=== PATIENT | male | born 1955 | race Caucasian/White ===

== ENCOUNTER → 2023-12-21 07:22 | Outpatient (REF) | payer MEDICARE, OTHER, SELFPAY | LOC: HWRAD 07:22 | PROVIDERS: ATTENDING PHYSICIAN Internal Medicine Hematology & Oncology; FAMILY PHYSICIAN Family Medicine | DX: C81.21 Mixed cellularity Hodgkin lymphoma, lymph nodes of head, face, and neck (principal) | CPT/HCPCS: 71260; 74177; Q9967 ==

== ENCOUNTER → 2025-08-25 17:17 | Outpatient (REF) | payer MEDICARE, OTHER, SELFPAY ==
[2025-08-25 18:02] LABS: Hematocrit 37.3 % (39.0-52.0); Hemoglobin 12.5 g/dL (13.0-18.0); Mean Corp Hgb Conc. 33.5 g/dL (33.0-37.0); Mean Corpuscular Volume 80.7 fL (80.0-94.0); Nucleated Red Blood Cells % 0 % (-); Platelet Count 354 10^3/uL (130-400); Red Cell Dist. Width 13.7 % (11.5-14.5)
[2025-08-25 18:10] LABS: ALT (SGPT) 34 U/L (0-50); AST (SGOT) 34 U/L (17-59); Albumin 4.2 g/dl (3.5-5.0); Alkaline Phosphatase 97 U/L (38-126); Blood Urea Nitrogen 16 mg/dl (9-20); Calcium 9.5 mg/dl (8.4-10.2); Carbon Dioxide 24 mmol/L (22-30); Chloride 96 mmol/L (98-107); Glucose 101 mg/dl (70-99); Potassium 4.3 mmol/L (3.5-5.1); Sodium 129 mmol/L (135-145); Total Protein 7.1 g/dl (6.3-8.2); eGFR > 60.00
== END ==
LOC: RAD 17:17
PROVIDERS: ATTENDING PHYSICIAN Family Medicine
DX: K35.30 Acute appendicitis with localized peritonitis, without perforation or gangrene (principal)
CPT/HCPCS: 36415; 74177; 80053; 85025; Q9967

== ENCOUNTER → 2025-08-27 07:03 | Outpatient (REF) | payer MEDICARE, OTHER, SELFPAY ==
[2025-08-27] VITALS (7 sets, daily range): BP systolic 90–134; BP diastolic 63–87
[2025-08-27 07:46] LABS: PT 15.7 Sec (11.4-14.6)
[2025-08-27 07:52] LABS: INR 1.27
== END ==
LOC: RADI 07:03
PROVIDERS: ATTENDING PHYSICIAN Family Medicine; REFERRING PHYSICIAN Physician Assistant
DX: C85.13 Unspecified B-cell lymphoma, intra-abdominal lymph nodes (principal); D68.8 Other specified coagulation defects
CPT/HCPCS: 36415; 49180; 77012; 85610; 88305; 88333; 88341; 88342; 99152; 99153

== ENCOUNTER 2025-09-01 17:41 | Observation (INO) | payer MEDICARE, OTHER, SELFPAY ==
[2025-09-01] VITALS (12 sets, daily range): BP systolic 87–149; BP diastolic 45–107; BMI 38.7
[2025-09-01 14:22] LABS: Hematocrit 36.6 % (39.0-52.0); Hemoglobin 12.1 g/dL (13.0-18.0); Mean Corp Hgb Conc. 33.1 g/dL (33.0-37.0); Mean Corpuscular Volume 81.2 fL (80.0-94.0); Nucleated Red Blood Cells % 0 % (-); Platelet Count 398 10^3/uL (130-400); Red Cell Dist. Width 13.8 % (11.5-14.5)
--- NOTE | 2025-09-01 14:33 | ED.GENMED ---
History of Present Illness
General
Chief Complaint: Abdominal Pain
Time Seen by Provider: 09/01/25 13:59
History of Present Illness
History of Present Illness:
69-year-old male with prior history of lymphoma presenting to the emergency department for worsening abdominal pain and failure to thrive. Patient reports that he had lymphoma in 2018, and about 3 to 4 weeks ago, started to have generalized
abdominal pain. He had a CT completed shortly after that time which showed multiple masses in the abdomen and pelvis, status post biopsy. They got the biopsy results which show lymphoma. He has not yet establish oncologic care, however had
previously [facility] following [facility] for prior [facility]. Patient arrives today, with daughter, who notes that he has not been eating or drinking for the past week due to pain. Denies any fever. Denies chest pain or difficulty breathing.
Denies additional acute medical complaints
Past History
Past History
ED Past Medical History: HTN and Hypercholesterolemia
ED Past Surgical History: None
Social History
Tobacco: Other (unknown)
Alcohol: Other (unknown)
Family History
Family History: Unable to obtain
Phy Exam
Physical Exam
Physical Exam:
General: Well-appearing, no clinical signs of dehydration, nontoxic and in no acute distress
HEENT: protecting airway
Neck: appears supple
CV: Normal heart rate, regular rhythm
Resp: No accessory muscle use, no increased work of breathing, lungs clear to auscultation bilaterally
Abd: Soft and non-distended, generalized tenderness to lower abdomen without rebound or guarding
Extremities: No deformities, no swelling
Neuro: alert, no focal neurologic deficit
: deferred
Rectal: deferred
Psych: Normal affect
Skin: Intact
Course
Orders/Labs/Results
Orders:
Orders
09/01/25 14:07
CMP [Comprehensive Metabolic Panel] Urgent
Complete Blood Count/With Diff Urgent
LDH Urgent
Comment: ADD ON
Uric Acid Urgent
Comment: ADD ON
09/01/25 14:26
CT Abd/pelvis W Iv Cont Urgent
Comment:
Reason For Exam: LLQ pain, new diagnosis of lymphoma
0.9% Sodium Chloride 1000 ml [Nss] 1,000 ml IV BOLUS
09/01/25 15:58
Add On- LAB Urgent
Tests Added?: uric acid and LDH
Abnormal Lab Results
09/01/25
14:07
WBC 16.4 H 10^3/uL
(4.8-10.8)
RBC 4.51 L 10^6/uL
(4.70-6.10)
Hgb 12.1 L g/dL
(13.0-18.0)
Hct 36.6 L %
(39.0-52.0)
MCH 26.8 L pg
(27.0-31.0)
Abs Immat Gran (auto) 0.1 H 10^3/uL
(0-0.05)
Absolute Neuts (auto) 13.4 H 10^3/uL
(1.4-6.5)
Absolute Monos (auto) 1.0 H 10^3/uL
(0.1-0.6)
Neutrophils % 81.8 H %
(42.2-75.2)
Lymphocytes % 10.5 L %
(20.5-51.1)
Sodium 134 L mmol/L
(135-145)
Glucose 106 H mg/dl
(70-99)
09/01/25 14:07
09/01/25 14:07
Vital Signs
Initial and Last Documented VS:
Initial Vital Signs
Temp Pulse Resp BP Pulse Ox
98.2 F 117 20 87/64 99
09/01/25 13:37 09/01/25 13:37 09/01/25 13:37 09/01/25 13:37 09/01/25 13:37
Last Documented Vital Signs
Temp Pulse Resp BP Pulse Ox
98.2 F 96 16 129/97 96
09/01/25 13:37 09/01/25 14:06 09/01/25 14:06 09/01/25 14:05 09/01/25 14:35
MDM/Problems Addressed
MDM/Problems Addressed:
69-year-old male with new diagnosis of lymphoma presenting to the emergency department for concern of failure to thrive and persistent abdominal pain. Vital signs on arrival significant for hypotension and tachycardia.
On exam patient is resting comfortably, no acute distress. Mild dryness to mucous membranes. Primary concern for dehydration with daughter noting that he has not been eating or drinking in the past week due to his new oncologic process and
abdominal pain. Vital signs on presentation consistent with volume depletion, hypotension, tachycardia, which improved once in examination room. Will start patient on IV fluids and obtain laboratory analysis to evaluate for dehydration. Will also
repeat CT imaging to ensure no interval change and discussed with oncology for likely plan for admission given failure to thrive
16:15 -patient's labs appear to be unchanged from prior. CT without significant acute change. Again plan for admission for failure to thrive, case discussed with oncology who will consult
*Pulse Oximetry
SaO2: 96
Oxygen Mode of Delivery: Room air
Patient hypoxic: no
*Critical Care Note
Total Time (30-74mins, 75-104mins- exclusive of procedures): Not Applicable
ED Attending Note
-
Portions of this chart may have been created with voice recognition software.� Occasional wrong word or��sound alike� substitutions may have occurred due to the inherent limitations of voice recognition software.
Discharge Plan
Departure
Patient Disposition: Admit
Date of Disposition: 09/01/25
Time of Disposition: 16:08
Presentation/result/management discussed w/ accepting MD/DO: Hospitalist
Patient with high blood pressure during this ER visit?: No
Condition: Fair
Discharge Problem:
Adult failure to thrive, Abdominal pain
Prescriptions:
No Action
metformin 500 MG tablet
500 mg PO BID
Patient Comments:
pt. states that he cut his dose in 1/2 & takes 500 mg. bid
lisinopril [Zestril] 5 MG tablet
10 mg PO DAILY
prochlorperazine maleate 10 mg Capsule, Extended Release
10 mg PO PRN PRN (Reason: nausea)
simvastatin [Zocor] 40 mg Tablet
40 mg PO HS
ondansetron 8 mg Tablet,Disintegrating
8 mg PO Q12H PRN (Reason: nausea)
Lactobacillus acidophilus 20 billion cell Capsule
100 mmu cells PO DAILY
Referrals:
Monico Muniz MD [Family Provider, Family Practice]
Interventions
Interventions:
*General Assessment Last Done: 09/01/25 13:37
*Neglect/Abuse Screening Last Done: 09/01/25 13:37
*ED COVID-19 Vaccine History Last Done: 09/01/25 13:53
*ED Influenza Vaccine History Last Done: 09/01/25 13:53
[facility] Fall Risk Assessment Tool Last Done: 09/01/25 13:53
RF-Tnxpro-Uagczbwkru Assessment Last Done: 09/01/25 14:11
Discharge Date and Time
Print Language: FRENCH
[2025-09-01 14:36] LABS: ALT (SGPT) 33 U/L (0-50); AST (SGOT) 39 U/L (17-59); Albumin 3.9 g/dl (3.5-5.0); Alkaline Phosphatase 99 U/L (38-126); Blood Urea Nitrogen 19 mg/dl (9-20); Calcium 9.3 mg/dl (8.4-10.2); Carbon Dioxide 24 mmol/L (22-30); Chloride 102 mmol/L (98-107); Estimated Creatinine Clearance 87 ml/min; Glucose 106 mg/dl (70-99); Potassium 4.1 mmol/L (3.5-5.1); Sodium 134 mmol/L (135-145); Total Protein 6.9 g/dl (6.3-8.2); eGFR > 60.00
[2025-09-01] MEDS: NSS 1000 IV (14:42)
[2025-09-01 16:31] LABS: LDH 465 U/L (120-246); Uric Acid 4.8 mg/dl (3.5-8.5)
--- NOTE | 2025-09-01 16:37 | HPS.HSE ---
Addendum entered and electronically signed by Annita Hendrickson MD 09/01/25 17:36:
This is an addendum to H&P written by Richelle Dodson on 09/01/2025. �Patient seen and examined independently with PA.
69-year-old male past medical history of Hodgkin's lymphoma in 2018 status post chemotherapy and radiation previously follows with Dr. Huffman, hypertension, hyperlipidemia, diabetes, obesity, obstructive sleep apnea, �presenting with abdominal pain
and decreased appetite since . �He had a CAT scan on 08/25 showing multiple abdominal masses. �He had a biopsy on 08/27. �He was called by primary who told that the biopsy is positive for lymphoma.
Vital signs shows 87/64.
Labs show leukocytosis 16.
CT abdomen pelvis shows numerous mesenteric and retroperitoneal soft tissue nodules which are stable in appearance from prior and are known biopsy-proven lymphoma.
Patient was given IV fluids with improvement in blood pressure.
Oncology consulted.
Original Note:
Family Physician
-
Family Physician: Monico Muniz
Chief Complaint
-
Abdominal Pain and Poor Appetite
History of Present Illness
Patient is a 69 y/o male past medical history of diabetes mellitus, hypertension, hyperlipidemia, obesity and Hodgkin lymphoma s/p chemo and radiation who presents with abdominal pain and poor. Patient reports since he has been having
right sided abdominal pain. He had a CT scan which revealed multiple abdominal masses. He underwent biopsy last week and received notification today from his primary that the biopsy was positive for recurrent lymphoma. Patient reports he has very
limited appetite, stating food has no flavor. He reports some new abdominal pain on the left. He denies nausea, vomiting or changes in bowel habits.
Medical History
Past Medical History
Past Medical History: Reports Other
Additional Past Medical History:
Diabetes Mellitus, Type II
Essential Hypertension
Hyperlipidemia
Obstructive Sleep Apnea
Class II Obesity
Hodgkin's Lymphoma s/p chemotherapy and radiation
Past Surgical History: Reports Other
Additional Past Surgical History:
Cataracts
Left sternoclavicular joint abscess drainage/debridement
Pectoralis Flap Reconstruction
Social History
Tobacco: Non-smoker
Alcohol: Occasional
Living: With Family
Family History
Family History: Not pertinent
Allergies / Home Medications
Allergies reflects when Allergies were last updated in [facility].
Home Medications with original date entered in [facility]
Allergy/Medication List:
Allergies
Allergy/AdvReac Type Severity Reaction Status Date / Time
No Known Drug Allergies Allergy Unknown Verified 09/01/25 13:35
Home Medications
metformin 500 mg tablet 500 mg PO BID 10/22/17
simvastatin 40 mg tablet (Zocor) 40 mg PO DAILY 08/26/25
glipizide 5 mg tablet, extended release 24 hr 5 mg PO DAILY@1800 09/01/25
lisinopril 5 mg tablet 5 mg PO DAILY 09/01/25
pioglitazone 30 mg tablet 30 mg PO DAILY 09/01/25
Review of Systems
-
A 12 point ROS was completed and negative except as noted: Yes
Constitutional: Denies Fever or Chills
Respiratory: Denies Cough or Trouble Breathing
Cardiac: Denies Chest Pain or Palpitations
Abdomen/GI: Reports See HPI
Physical Exam
Vital Signs
Vital Signs
Temp Pulse Resp BP Pulse Ox
98.2 F 96 16 129/97 96
09/01/25 13:37 09/01/25 14:06 09/01/25 14:06 09/01/25 14:05 09/01/25 14:35
Physical Exam
General: Comfortable, Conversant and Obese
HEENT: Anicteric and Moist mucous membranes
Respiratory: Clear and Non Labored Respirations
Cardiac: S1/S2 and Regular Rhythm
GI: Soft, Tender (Right lower quadrant without rebound or guarding) and Other (bowel sounds are more prominent in bilateral upper quadrants)
Rectal: Deferred by Provider
Musculoskeletal: No Clubbing and No Cyanosis
Skin: Warm and Dry
Neuro: Awake, Alert, Oriented and Nonfocal/grossly intact
Psych: Calm
Laboratory Results
-
09/01/25 14:07
09/01/25 14:07
Laboratory Results
Total Bilirubin 0.7 mg/dl (0.2-1.3) 09/01/25 14:07
AST 39 U/L (17-59) 09/01/25 14:07
ALT 33 U/L (0-50) 09/01/25 14:07
Alkaline Phosphatase 99 U/L (38-126) 09/01/25 14:07
Data Reviewed
-
Lab Data: Labs Reviewed by me
Impression/Plan
-
Multiple Abdominal Masses / Newly Diagnosed Recurrent Lymphoma
-Consult Oncology
Diabetes Mellitus, Type II
-Hold oral meds due to poor oral intake
-Monitor sugars and continue coverage insulin
Essential Hypertension
-Patient reports he has not taken his lisinopril for a few weeks
-Monitor blood pressure off meds
Hyperlipidemia
-Continue statin
Obstructive Sleep Apnea
-Patient intolerant to CPAP
Class II Obesity
-Affects all aspects of care
DVT proph: Lovenox
Code Status: Full Code
[2025-09-01] MEDS: LOVENOX 40 MG SC (22:14)
[2025-09-02] VITALS (10 sets, daily range): BP systolic 111–143; BP diastolic 40–88
[2025-09-02 00:26] LABS: Glucose - Point of Care 112 mg/dl (70-99)
[2025-09-02 06:11] LABS: Blood Urea Nitrogen 17 mg/dl (9-20); Calcium 8.6 mg/dl (8.4-10.2); Carbon Dioxide 23 mmol/L (22-30); Chloride 104 mmol/L (98-107); Estimated Creatinine Clearance 97 ml/min; Glucose 87 mg/dl (70-99); Potassium 4.7 mmol/L (3.5-5.1); Sodium 132 mmol/L (135-145); eGFR > 60.00
[2025-09-02 06:21] LABS: Hematocrit 34.7 % (39.0-52.0); Hemoglobin 11.0 g/dL (13.0-18.0); Mean Corp Hgb Conc. 31.7 g/dL (33.0-37.0); Mean Corpuscular Volume 86.1 fL (80.0-94.0); Platelet Count 357 10^3/uL (130-400); Red Cell Dist. Width 13.9 % (11.5-14.5)
--- NOTE | 2025-09-02 07:15 | W.PN.HOSP.TC ---
Addendum entered and electronically signed by Herlinda Geiger MD 09/02/25 18:39:
I saw and evaluated the patient independently. I reviewed and discussed the resident�s note and agree with findings and plan as documented by Dr. Khoury.
GENERAL: well developed, well nourished, male in no apparent distress
HEENT: NC/AT--Hard of hearing
HEART: regular rate and rhythm, +S1, +S2
LUNGS : clear to auscultation bilaterally
ABDOM: soft, nontender, nondistended, + bowel sounds
EXT: no cyanosis, clubbing, or edema
Multiple Abdominal Masses/Newly Diagnosed Recurrent Lymphoma/history of Hodgkin's Lymphoma in 2018--known to Dr. Huffman--apprec onc--path not back--Ok to d/c pt with outpt onc follow up
Diabetes Mellitus, Type II-Agreed to hold oral meds(pioglitazone, metformin, glipizide) due to poor oral intake-Monitor sugars and continue coverage insulin
Essential Hypertension-Patient reports he has not taken his lisinopril for a few weeks and on initial presentation his blood pressure was in 80s- Blood pressure improved after IV fluid
Hyperlipidemia-Continue statin
Obstructive Sleep Apnea-Patient intolerant to CPAP
Class II Obesity-Affects all aspects of care
DVT proph-- Lovenox
Code Status-- Full Code
Original Note:
Today's Communication/Plan
-
d/c
follow-up outpatient with Dr. Huffman to review the treatment options once the path report is back
Assessment / Plan
Assessment / Plan
69-year-old male past medical history of Hodgkin's lymphoma in 2018 status post chemotherapy and radiation previously follows with Dr. Huffman, hypertension, hyperlipidemia, diabetes, obesity, obstructive sleep apnea, presenting with abdominal pain
and decreased appetite, outpatient CT scan on 08/25 showing multiple abdominal masses. �He had a biopsy on 08/27. �He was called by primary who told that the biopsy is positive for lymphoma.
#Multiple Abdominal Masses / Newly Diagnosed Recurrent Lymphoma/history of particular pulm in 2018
- Oncology team has been consulted
- official path report is pending
- Patient was discussed with on service oncology resident, Dr. Cabrera ; no official pathology report available at [facility]; will take some additional days and there is no role of inpatient chemotherapy at this point.
- Patient will follow-up outpatient with Dr. Huffman to review the treatment options
CT 09/01/2025:
There are numerous mesenteric and retroperitoneal soft tissue nodules which are stable in appearance from prior and are known biopsy-proven lymphoma.
Redemonstration of the mass along the terminal ileum without signs suggestive of small bowel obstruction.
Cholelithiasis without CT findings suggestive of acute cholecystitis.
Stable bilateral adrenal nodules which are likely benign.
#Diabetes Mellitus, Type II
-Agreed to hold oral meds(pioglitazone, metformin, glipizide) due to poor oral intake
-Monitor sugars and continue coverage insulin
#Essential Hypertension
-Patient reports he has not taken his lisinopril for a few weeks and on initial presentation his blood pressure was in 80s
- Blood pressure improved after IV fluid
#Hyperlipidemia
-Continue statin
#Obstructive Sleep Apnea
-Patient intolerant to CPAP
#Class II Obesity
-Affects all aspects of care
DVT proph: Lovenox
Code Status: Full Code
Anticipated Discharge: Today
Subjective/Interval History
-
Date of Service: September 02, 2025
AFVSS. Patient offers no complaints. States that his abdominal pain is very minimal.
Objective Data
-
Labs:
Laboratory Results
09/02/25
05:34
WBC 11.0 H
Hgb 11.0 L
Hct 34.7 L
Plt Count 357
Sodium 132 L
Potassium 4.7
Chloride 104
Carbon Dioxide 23
BUN 17
Creatinine 0.9
Glucose 87
Calcium 8.6
Vital Signs:
Vital Signs
Temp Pulse Resp BP Pulse Ox
98.2 F 85 22 142/76 96
09/01/25 13:37 09/01/25 23:15 09/01/25 23:15 09/02/25 06:00 09/02/25 06:00
Review of Systems
-
History Source: Patient
All other systems: Reviewed and negative
Physical Exam
-
General: Well Developed, Well Nourished and Obese
HEENT: Normocephalic, Atraumatic and Hearing Impaired
Respiratory: Clear to Auscultation and Non Labored Respirations
Cardiac: Regular Rhythm and S1/S2
GI: Soft, Nontender and Nondistended
Skin: Warm and Dry
Neuro: Awake, Alert and Oriented
Psych: Calm
Data Reviewed
-
CT Scan: Report Reviewed by me, Discussed with Physician and Discussed with Patient
Labs: Labs Reviewed by me, Discussed with Physician and Discussed with Patient
[2025-09-02] MEDS: LIPITOR 20 MG PO ×2 (08:50→08:54)
[2025-09-02 09:05] LABS: Glycohemoglobin (HgbA1c) 6.6 % (4.0-5.9)
[2025-09-02 09:38] LABS: Glucose - Point of Care 106 mg/dl (70-99)
--- NOTE | 2025-09-02 09:39 | CON.ONC ---
Consultation
-
Date Consultation Requested: 09/01/25
Date Consultation Performed: 09/02/25
Requesting Provider: Richelle Milian PA-C
Performing Provider: Luigi Vasquez MD
Reason for Consultation: History of lymphoma
Impression
Impression
Patient with history of Hodgkin's lymphoma in 2018 s/p chemo and RT now with possible relapsed disease, path pending
Plan
Plan
#History of Hodgkin's lymphoma in 2018 s/p chemotherapy and RT
#Abdominal pain
#Low appetite
#Masses seen on CT A/P on 08/25 and 09/01 s/p biopsy on 08/27
Patient previously followed with Dr. Huffman. He had been in remission and last seen in the [facility] in 2023. Given new findings on scans and pending path report, he will likely need to reestablish care with Dr. Huffman outpatient. We do not
see a role for inpatient hospitalization from an oncology perspective at this time.
- If no active medical concerns at this time, we recommend discharging patient with outpatient follow-up with Dr. Huffman.
Patient History
History of Present Illness
69-year-old male with history of lymphoma in 2018 (followed with Dr. Huffman) who presented to the ED for 3-4 weeks of low appetite secondary to generalized abdominal pain. His PCP ordered a CT A/P on 08/25, which showed a mass in the right lateral
paracolic gutter and a mass surrounding the distal ileum concerning for metastatic disease. The patient then had an outpatient CT-guided biopsy on 08/27 for which final path is pending, however patient was told by his PCP that path was positive for
lymphoma and sent to the ED for further management. He has yet reestablish oncological care. Today, he denies SOB, fevers, nausea, night sweats, vomiting, headaches, chest pain, GI/ symptoms. He endorses an unintentional 25 pound weight loss in
the last year.
Past-Medical/Surgical History
Past medical history:
Hypertension, essential
Hypercholesterolemia
Hodgkin's lymphoma s/p chemotherapy and radiation in 2018
SAUD
Type 2 diabetes
Past surgical history:
Cataracts
Left sternoclavicular joint abscess drainage/debridement
Pectoralis flap reconstruction
Patient Medication
�Medication �Instructions �Recorded �Confirmed �Last Taken �Type
metformin 500 mg tablet 500 mg PO BID 10/22/17 09/02/25 08/26/25 History
simvastatin 40 mg tablet (Zocor) 40 mg PO DAILY 08/26/25 09/02/25 08/26/25 History
glipizide 5 mg tablet, extended 5 mg PO DAILY@1800 09/01/25 09/02/25 Unknown History
release 24 hr
lisinopril 5 mg tablet 5 mg PO DAILY 09/01/25 09/02/25 Unknown History
pioglitazone 30 mg tablet 30 mg PO DAILY 09/01/25 09/02/25 Unknown History
Active Medications
Generic Name Dose Route Start Last Admin
Trade Name Freq PRN Reason Stop Dose Admin
Acetaminophen 650 mg 09/01/25 20:52
Acetaminophen 325 Mg Tablet PO 09/29/25 20:51
Q4HPRN PRN
mild pain/ fever>100.5F
Atorvastatin Calcium 20 mg 09/02/25 08:00 09/02/25 08:54
Atorvastatin (Lipitor) 20 Mg Tablet PO 09/30/25 07:59 20 mg
DAILY MERCEDES Administration
Dextrose 12.5 grams 09/01/25 20:52
Dextrose 50% (0.5 Grams/Ml) 50 Ml Syringe IV 09/29/25 20:51
[id number] PRN
hypoglycemia
Protocol
Enoxaparin Sodium 40 mg 09/01/25 20:52 09/01/25 22:14
Enoxaparin Sodium 40 Mg/0.4 Ml Syringe SC 09/29/25 20:51 40 mg
QPM MERCEDES Administration
Glucagon 1 mg 09/01/25 20:52
Glucagon 1 Mg Vial IM 09/29/25 20:51
PRN PRN
hypoglycemia
Protocol
Insulin Aspart 0 units 09/02/25 07:30
Insulin Aspart Low Resistance 300 Units/3 Ml Pen.Injctr SC 09/30/25 07:29
AC MERCEDES
Protocol
Sodium Chloride 0 flush 09/01/25 21:00
Sodium Chloride 0.9% (Flush) Syringe IV 09/29/25 20:59
PER PROTOCOL MERCEDES
Review of Systems
-
History Source: Patient
All Other Systems: Reviewed and Negative
Constitutional: Reports Weight Loss and No Appetite
GI: Reports Abdominal Pain
Physical Exam
-
General: Well Nourished, No Apparent Distress, Comfortable and Conversant
HEENT: Moist Mucous Membranes
Cardiology: Normal Sinus Rhythm
Pulmonary: Clear
GI: Soft and Normal Bowel Sounds
Musculoskeletal: No Edema
Skin: Warm and Dry
Psych: Calm and Intact Judgement/Insight
Labs
Lab Results
WBC 11.0 10^3/uL (4.8-10.8) H 09/02/25 05:34
RBC 4.03 10^6/uL (4.70-6.10) L 09/02/25 05:34
Hgb 11.0 g/dL (13.0-18.0) L 09/02/25 05:34
Hct 34.7 % (39.0-52.0) L 09/02/25 05:34
MCV 86.1 fL (80.0-94.0) 09/02/25 05:34
MCH 27.3 pg (27.0-31.0) 09/02/25 05:34
MCHC 31.7 g/dL (33.0-37.0) L 09/02/25 05:34
RDW 13.9 % (11.5-14.5) 09/02/25 05:34
Plt Count 357 10^3/uL (130-400) 09/02/25 05:34
MPV 9.4 fL (7.4-10.4) 09/02/25 05:34
Abs Immat Gran (auto) 0.1 10^3/uL (0-0.05) H 09/01/25 14:07
Absolute Neuts (auto) 13.4 10^3/uL (1.4-6.5) H 09/01/25 14:07
Absolute Lymphs (auto) 1.7 10^3/uL (1.2-3.4) 09/01/25 14:07
Absolute Monos (auto) 1.0 10^3/uL (0.1-0.6) H 09/01/25 14:07
Absolute Eos (auto) 0.1 10^3/uL (0-0.7) 09/01/25 14:07
Absolute Basos (auto) 0.1 10^3/uL (0-0.2) 09/01/25 14:07
Immature Gran % 0.5 % (0-0.5) 09/01/25 14:07
Neutrophils % 81.8 % (42.2-75.2) H 09/01/25 14:07
Lymphocytes % 10.5 % (20.5-51.1) L 09/01/25 14:07
Monocytes % 6.3 % (1.7-9.3) 09/01/25 14:07
Eosinophils % 0.5 % (0-6) 09/01/25 14:07
Basophils % 0.4 % (0-2) 09/01/25 14:07
Creatinine 0.9 mg/dL (0.7-1.3) 09/02/25 05:34
Vital Signs
Vital Signs
Temp Pulse Resp BP Pulse Ox
97.9 F 88 18 140/67 100
09/02/25 07:35 09/02/25 07:35 09/02/25 07:35 09/02/25 07:35 09/02/25 07:35
--- NOTE | 2025-09-02 11:00 | CM ---
Patient seen at bedside in ED. Patient given OBS/SOLIS and patient completed and copy left with patient. Patient stated that he lives with his mother in a one story home. Patient PCP is Dr. Zhong and he uses the [facility] in [place]/[address]
Patient is for discharge home today with follow up outpatient with oncology per physician. Patient stated that he was able to have transportation. CM will continue to follow for discharge planning needs.
Plan; home with outpatient oncology follow up
--- NOTE | 2025-09-02 11:19 | W.DCSUMMARY ---
Addendum entered and electronically signed by Herlinda Geiger MD 09/03/25 06:58:
Read, reviewed, and agree. See same day progress note for additional details. Time spent coordinating care, DC planning, review of DC plan of care with resident, transition of care, review of records in EMR, med rec, consults, notes, d/w
consultants, nursing, family, and CM = 20 minutes
Original Note:
Discharge Summary
Discharge Data
Date of Admission: 09/01/25
Date of Discharge: 09/02/25
-
Pending Results: No
Hospital Course
Discharging Physician : Silviano Khoury MD ; Herlinda Geiger MD
Disposition : Home
Primary care physician : Dr. Muniz
Principal Discharge diagnosis : Intra-abdominal malignancy seen on CT scan; possible lymphoma
Chronic Discharge diagnosis : DM type 2, Essential HTN, hyperlipidemia, SAUD, Class 2 obesity, History of remote Hodgkin's disease
Hospital Course : 69-year-old male past medical history of Hodgkin's lymphoma in 2018 status post chemotherapy and radiation previously follows with Dr. Huffman, hypertension, hyperlipidemia, diabetes, obesity, obstructive sleep apnea, presenting
with abdominal pain and decreased appetite, outpatient CT scan on 08/25 showing multiple abdominal masses. �He had a biopsy on 08/27. �He was called by primary who told that the biopsy is positive for lymphoma.
Updated CT in the ER confirmed the above findings.
Oncology was consulted. There was no official pathology report available at this time; will take some additional days and there is no role of inpatient chemotherapy at this point.
Patient will need PET CT scan once biopsy has been officially confirmed with discussion of about systemic treatment options based on the results of the pathology and staging scans
He was discharged in stable medical condition.
Important imaging findings : CT Abd/pelvis W Iv Cont:
IMPRESSION:
There are numerous mesenteric and retroperitoneal soft tissue nodules which are stable in appearance from prior and are known biopsy-proven lymphoma.
Redemonstration of the mass along the terminal ileum without signs suggestive of small bowel obstruction.
Cholelithiasis without CT findings suggestive of acute cholecystitis.
Stable bilateral adrenal nodules which are likely benign.
Discharge Plan
-
Patient Disposition: Home (Routine Discharge)
Discharge Diagnosis/Procedures: Intra-abdominal malignancy seen on CT scan; possible lymphoma
History of remote Hodgkin's disease
Condition: Good
Diet: Diabetic, Carb Controlled
Activity: As tolerated
Driving Restrictions: As prior to admission
Bathing Restrictions: None
Referrals:
Monico Muniz MD [Family Provider, [facility]] - in less than 1 week
Additional Discharge Medication Instructions: Please follow-up with our outpatient family doctor within 1 week
Please follow-up with outpatient oncologist to discuss CT results and pathology report as well as treatment options
Please monitor your blood pressure at home do not use the lisinopril if your blood pressure is less than 100/60
Since you have not been eating as usual because of decreased appetite I would recommend holding the glipizide to avoid hypoglycemia at this time. You can also monitor your blood sugars at home and can take the metformin and pioglitazone however if
the blood sugars are less than 100 you should avoid medications to prevent hypoglycemia.
Prescriptions:
Continued
metformin 500 MG tablet
500 mg PO BID
simvastatin [Zocor] 40 mg Tablet
40 mg PO DAILY
lisinopril 5 mg tablet
5 mg PO DAILY
pioglitazone 30 mg tablet
30 mg PO DAILY
Held
glipizide 5 mg tablet extended release 24hr
5 mg PO QPM
Hold Instructions: until you see the pcp
Discharge Orders:
Discharge Patient (As Directed); Ordered 09/02/25
Ordered By: Silviano Khoury
Discharge Date and Time
Print Language: OCCITAN
== END 2025-09-02 16:49 | disposition home or self-care (01) ==
LOC: ED 17:41
PROVIDERS: Physician Assistant Medical; ADMITTING PHYSICIAN Hospitalist; ATTENDING PHYSICIAN Internal Medicine; EMERGENCY PHYSICIAN Student in an Organized Health Care Education/Training Program; FAMILY PHYSICIAN Family Medicine; OTHER PHYSICIAN Internal Medicine Hematology & Oncology
DX: C85.93 Non-Hodgkin lymphoma, unspecified, intra-abdominal lymph nodes (principal); E11.9 Type 2 diabetes mellitus without complications; I10 Essential (primary) hypertension; E66.812 Obesity, class 2; Z68.38 Body mass index [BMI] 38.0-38.9, adult; G47.33 Obstructive sleep apnea (adult) (pediatric); K80.20 Calculus of gallbladder without cholecystitis without obstruction; E27.8 Other specified disorders of adrenal gland; Z91.128 Patient's intentional underdosing of medication regimen for other reason; Z92.21 Personal history of antineoplastic chemotherapy; Z92.3 Personal history of irradiation; E78.00 Pure hypercholesterolemia, unspecified; Z79.84 Long term (current) use of oral hypoglycemic drugs; Z79.899 Other long term (current) drug therapy
CPT/HCPCS: 74177; 80048; 80053; 82962; 83036; 83615; 84550; 85025; 85027; 96360; 99284; G0378; Q9967

== ENCOUNTER → 2025-09-15 11:56 | Outpatient (REF) | payer MEDICARE, OTHER, SELFPAY ==
[2025-09-15 12:50] LABS: Hematocrit 34.9 % (39.0-52.0); Hemoglobin 11.5 g/dL (13.0-18.0); Mean Corp Hgb Conc. 33.0 g/dL (33.0-37.0); Mean Corpuscular Volume 83.3 fL (80.0-94.0); Nucleated Red Blood Cells % 0 % (-); Platelet Count 357 10^3/uL (130-400); Red Cell Dist. Width 14.3 % (11.5-14.5)
[2025-09-15 13:24] LABS: ALT (SGPT) 74 U/L (0-50); AST (SGOT) 57 U/L (17-59); Albumin 4.0 g/dl (3.5-5.0); Alkaline Phosphatase 134 U/L (38-126); Blood Urea Nitrogen 25 mg/dl (9-20); Calcium 9.6 mg/dl (8.4-10.2); Carbon Dioxide 23 mmol/L (22-30); Chloride 99 mmol/L (98-107); Glucose 131 mg/dl (70-99); LDH 363 U/L (120-246); Potassium 4.9 mmol/L (3.5-5.1); Sodium 132 mmol/L (135-145); Total Protein 6.9 g/dl (6.3-8.2); Uric Acid 4.0 mg/dl (3.5-8.5); eGFR > 60.00
== END ==
LOC: REG 11:56
PROVIDERS: ATTENDING PHYSICIAN Internal Medicine Hematology & Oncology
DX: C81.21 Mixed cellularity Hodgkin lymphoma, lymph nodes of head, face, and neck (principal)
CPT/HCPCS: 36415; 80053; 83615; 84550; 85025